=== PATIENT | male | born 1995 | race Caucasian/White ===

== ENCOUNTER 2021-09-19 17:58 | Emergency (ER) | payer SELFPAY ==
[2021-09-19] MEDS ORDERED: FLUORESCEIN SODIUM 1 MG/WRAP ONE (18:25)
[2021-09-19] MEDS ORDERED: TETRACAINE HCL 0.5% 4ML OPTH ONE (18:25)
[2021-09-19] MEDS ORDERED: TOBRAMYCIN SULF 0.3% OPTH OINT ONE (18:48)
[2021-09-19] MEDS ORDERED: CYCLOPENTOLATE 2% OPTH 2 ML ONE (18:51)
--- NOTE | 2021-09-19 18:54 | ER ---
Nurse's Notes [facility] Name: Gopal Alberts Age: 26 yrs Sex: Male : 1995 Arrival Date: 09/19/2021 Time: 18:01 Bed 12 Private MD: Diagnosis: Foreign body in cornea, left eye Presentation: 09/19 18:14 Chief complaint: Patient states: "I was working on a car yesterday and something fell ab2 in my eye. Last night it hurt but this morning when I woke up it was red and swollen, I think something is still in there.". Coronavirus screen: Vaccine status: Patient reports being unvaccinated. Client denies travel out of the [place] in the last 14 days. At this time, the client does not indicate any symptoms associated with coronavirus-19. Ebola Screen: Patient negative for fever greater than or equal to 101.5 degrees Fahrenheit, and additional compatible Ebola Virus Disease symptoms Patient denies exposure to infectious person. Patient denies travel to an Ebola-affected area in the 21 days before illness onset. No symptoms or risks identified at this time. Mechanism of Injury: unknown. The patient denies any loss of vision. Initial Sepsis Screen: Does the patient meet any 2 criteria? No. Patient's initial sepsis screen is negative. Does the patient have a suspected source of infection? No. Patient's initial sepsis screen is negative. Risk Assessment: Do you want to hurt yourself or someone else? Patient reports no desire to harm self or others. Onset of symptoms is unknown. 18:14 Method Of Arrival: Ambulatory ab2 18:14 Acuity: CLAUDIA 4 ab2 Triage Assessment: 18:18 General: Appears in no apparent distress. uncomfortable, Behavior is calm, cooperative, ab2 appropriate for age. Pain:. EENT: Reports pain. EENT: Reports Something in the left eye . Neuro: No deficits noted. Level of Consciousness is awake, alert, obeys commands, Oriented to person, place, time, situation, Appropriate for age Telecommunications Network Engineer are equal bilaterally Moves all extremities. Gait is steady, Speech is normal, Facial symmetry appears normal. Respiratory: Airway is patent Respiratory effort is even, unlabored, Respiratory pattern is regular, symmetrical. Historical: - Allergies: 18:17 No Known Allergies; ab2 - PMHx: 18:17 None; ab2 - PSHx: 18:17 None; ab2 - Immunization history:: Adult Immunizations up to date. - Social history:: Smoking status: Patient reports use of chewing tobacco. Screenin:18 Abuse screen: Denies threats or abuse. Denies injuries from another. Nutritional ab2 screening: No deficits noted. Tuberculosis screening: No symptoms or risk factors identified. Fall Risk None identified. Assessment: 18:30 General: Appears in no apparent distress. comfortable, Behavior is anxious. Neuro: ab2 Level of Consciousness is awake, alert, obeys commands, Oriented to person, place, time, situation, Appropriate for age. Vital Signs: 18:14 BP 135 / 94; Pulse 125; Resp 17; Temp 98.2(TE); Pulse Ox 100% on R/A; Weight 74.84 kg; ab2 Height 5 ft. 10 in. (177.80 cm); Pain 0/10; 18:50 BP 127 / 86; Pulse 95; Resp 17; Pulse Ox 100% on R/A; ab2 18:14 Body Mass Index 23.67 (74.84 kg, 177.80 cm) ab2 ED Course: 18:01 Patient arrived in ED. jj6 18:17 Triage completed. ab2 18:18 Arm band placed on right wrist. ab2 18:18 No provider procedures requiring assistance completed. ab2 18:19 Patient has correct armband on for positive identification. Bed in low position. Call ab2 light in reach. Side rails up X2. 18:20 Lluvia Mcmahon FNP-C is [facility]. kb 18:20 Hung Melissa MD is Attending Physician. kb 18:53 Ghassan Crump MD is Referral Physician. kb 18:57 Patient did not have IV access during this emergency room visit. ab2 Administered Medications: 18:48 Drug: Tetracaine Drops 0.5 % 1 drops Route: Ophthalmic; Site: left eye; ab2 18:48 Drug: Tobramycin Ointment (0.3 %) 1 application Route: Ophthalmic; Site: left eye; ab2 18:53 Drug: Cyclogyl Drops (1 %) 1 drops Route: Ophthalmic; Site: left eye; kb Outcome: 18:54 Discharge ordered by . kb 18:55 Discharged to home ambulatory. ab2 18:55 Condition: good 18:55 Discharge instructions given to patient, Instructed on discharge instructions, follow up and referral plans. Demonstrated understanding of instructions, follow-up care. 18:57 Patient left the ED. ab2 Signatures: Lluvia Mcmahon, HOMELAND SECURITY PROGRAM SPECIALIST-C HOMELAND SECURITY PROGRAM SPECIALIST-CkShandra Tyson jj6 Carmelo Em ab2
--- NOTE | 2021-09-19 18:55 | EDPHYS ---
Physician Documentation [facility] Name: Gopal Alberts Age: 26 yrs Sex: Male : 1995 Arrival Date: 09/19/2021 Time: 18:01 Bed 12 Private MD: ED Physician Hung Melissa HPI: 09/19 18:57 This 26 yrs old Male presents to ER via Ambulatory with complaints of Eye Pain, Redness kb of Eye, Drainage From Eye. 18:57 The patient is experiencing foreign body sensation, pain, redness, to the left eye, kb caused by debris. Onset: The symptoms/episode began/occurred yesterday. Duration: the symptoms are continuous. Aggravated by nothing. Alleviated by nothing. Associated signs and symptoms: Pertinent positives: None. Patient does not utilize any form of vision correction. Severity of symptoms: At their worst the symptoms were mild moderate in the emergency department the symptoms are unchanged. The patient has not experienced similar symptoms in the past. The patient has not recently seen a physician. Pt reports he was working under a car yesterday and believes something went into his left eye. Reports left eye pain and redness that started yesterday evening and is worse today. . Historical: - Allergies: 18:17 No Known Allergies; ab2 - PMHx: 18:17 None; ab2 - PSHx: 18:17 None; ab2 - Immunization history:: Adult Immunizations up to date. - Social history:: Smoking status: Patient reports use of chewing tobacco. ROS: 18:55 Constitutional: Negative for fever, chills, and weight loss. kb 18:55 Eyes: Positive for foreign body sensation, pain, redness. 18:55 All other systems are negative. Exam: 18:55 Constitutional: This is a well developed, well nourished patient who is awake, alert, kb and in no acute distress. Head/Face: Normocephalic, atraumatic. ENT: Moist Mucous membranes Respiratory: Respirations even and unlabored. No increased work of breathing. Talking in full sentences Skin: Warm, dry with normal turgor. Normal color. MS/ Extremity: Pulses equal, no cyanosis. Neurovascular intact. Full, normal range of motion. Neuro: Awake and alert, GCS 15, oriented to person, place, time, and situation. Moves all extremities. Normal gait. 18:55 Eyes: Periorbital structures: appear normal, Pupils: equal, round, and reactive to light and accomodation, Extraocular movements: intact throughout, Conjunctiva: injected, Corneas: foreign body, on the left, at 9 o'clock, a piece of metal, a fluorescein strip employed to appreciate the findings. Vital Signs: 18:14 BP 135 / 94; Pulse 125; Resp 17; Temp 98.2(TE); Pulse Ox 100% on R/A; Weight 74.84 kg; ab2 Height 5 ft. 10 in. (177.80 cm); Pain 0/10; 18:50 BP 127 / 86; Pulse 95; Resp 17; Pulse Ox 100% on R/A; ab2 18:14 Body Mass Index 23.67 (74.84 kg, 177.80 cm) ab2 Procedures: 18:56 Foreign Body Removal: a piece of metal, from the left eye, conjunctiva by Dressing: eye kb pad was placed, The patient tolerated the removal well, performed by Dr Melissa. MDM: 18:20 Patient medically screened. kb 18:55 Data reviewed: vital signs, nurses notes. Data interpreted: Pulse oximetry: on room air kb is 100 %. Interpretation: normal. Counseling: I had a detailed discussion with the patient and/or guardian regarding: the historical points, exam findings, and any diagnostic results supporting the discharge/admit diagnosis, the need for outpatient follow up, an opthalmologist, to return to the emergency department if symptoms worsen or persist or if there are any questions or concerns that arise at home. 09/19 18:20 Order name: Eye Tray; Complete Time: 18:30 kb 09/19 18:20 Order name: Fluoresene Opth strip; Complete Time: 18:30 kb 09/19 18:20 Order name: Visual Acuity 09/19 18:45 Order name: Misc. Order: patch left eye; Complete Time: 18:55 garrick Administered Medications: 18:48 Drug: Tetracaine Drops 0.5 % 1 drops Route: Ophthalmic; Site: left eye; ab2 18:48 Drug: Tobramycin Ointment (0.3 %) 1 application Route: Ophthalmic; Site: left eye; ab2 18:53 Drug: Cyclogyl Drops (1 %) 1 drops Route: Ophthalmic; Site: left eye; kb Disposition Summary: 09/19/21 18:54 Discharge Ordered Location: Home kb Condition: Stable kb Diagnosis - Foreign body in cornea, left eye kb Followup: kb - With: Emergency Department - When: As needed - Reason: Worsening of condition Followup: kb - With: Private Physician - When: 2 - 3 days - Reason: Recheck today's complaints, Continuance of care, Re-evaluation by your physician Followup: kb - With: Ghassan Crump MD - When: 09/21/2021 - Reason: Discharge Instructions: - Discharge Summary Sheet kb - Eye Foreign Body kb Forms: - Medication Reconciliation Form kb - Thank You Letter kb - Antibiotic Education kb - Prescription Opioid Use kb Addendum: 09/24/2021 18:31 Co-signature as Attending Physician, Hung Melissa MD I agree with the assessment and c patel plan of care. Signatures: Lluvia Mcmahon, VACUUM CLEANER MECHANIC-C VACUUM CLEANER MECHANIC-Hung Kate MD MD cha Bleininger, Alexis ab2
[2021-09-19 20:14] VITALS: BP 135/94; TEMP 98.2; O2SAT 100
== END 2021-09-19 18:57 | disposition home or self-care (01) ==
LOC: ER 17:58
PROC: 08C9XZZ Extirpation of Matter from Left Cornea, External Approach (ICD-10-PCS; principal; 2021-09-19)
DX: T15.02XA Foreign body in cornea, left eye, initial encounter (principal); X58.XXXA Exposure to other specified factors, initial encounter; Y93.89 Activity, other specified; Y92.9 Unspecified place or not applicable
CPT/HCPCS: 99283

== ENCOUNTER → 2023-08-10 | Emergency (ER) | payer SELFPAY ==
[~2023-08-10] MED LIST: MECLIZINE HCL 12.5 MG TAB ONE; ONDANSETRON 4 MG (ODT) TAB ONE
--- OUTSIDE RECORDS SUMMARY | 2023-08-10 09:23 | XMS REPORT | Continuity of Care Document ---
Author Name Unknown Address [address] [place] [address] [facility]connect Address [address] [place] [address] Care Team Providers Care Counter Intelligence Agent Name Role Phone Pcp, Patient Does Not Have A Primary Care Physic hay CONCHA JIMENEZ Attending Clinician UnavailConcha Becerra DO Attending Clinician [phone] MAGGY CARRASCO Attending Clinician Unavailab Maggy Dodge DO Attending Clinician [phone] Problems Condition Name Condition Details Condition Category Status Onset Date Resolution Date Last Treatment Date Treating Clinician Comments Source No known active problems No known active problems Disease [facility] Allergies, Adverse Reactions, Alerts Allergy Name Allergy Type Status Severity Reaction(s) Onset Date Inactive Date Treating Clinician Comments Source NO KNOWN ALLERGIE S Drug Class Active [facility] Social History Social Habit Start Date Stop Date Quantity Comments Source Sexual orientation [facility] Exposure to SARS-CoV-2 (event) 2022-03-06 00:00:00 2022-03-16 10:28:00 Not sure [facility] Sex Assigned At 1995 00:00:00 1995 00:00:00 [facility] Smoking Status Start Date Stop Date Source Tobacco smoking consumption unknown [facility] Medications Ordered Medication Name Filled Medication Name Start Date Stop Date Current Medication? Ordering Clinician Indication Dosage Frequency Signature (SIG) Comments Components Source dexAMETHaso ne (DECADRON) tablet 16 mg 2022-06 16:45: 00 05-19 16:01 :00 No 16mg 16 mg, Oral, ONCE, 1 dose, On Tue05/19/23 at 1045, TALIA [facility] dexamethaso ne sod phos PF injection 10 mg 2021-06 0-04 15:45: 00 03-16 15:53 :00 No 10mg 10 mg, Oral, ONCE, 1 dose, On Tue03/16/22 at 1045, 1 mL [facility] No known medications 2021-06 004 10:31: 29 No No known medication s [facility] Vital Signs Vital Name Observation Time Observation Value Comments Iesha schaefer Systolic blood pressure 2023-05-19 15:26:00 145 mm[Hg] [facility] Diastolic blood pressure 2023-05-19 15:26:00 102 mm[Hg] [facility] Heart rate 2023-05-19 15:26:00 110 /min [facility] Body temperature 2023-05-19 15:26:00 37.11 Genevieve [facility] Respiratory rate 2023-05-19 15:26:00 18 /min [facility] Body height 2023-05-19 15:26:00 177.8 cm [facility] Body weight 2023-05-19 15:26:00 70.308 kg [facility] BMI 2023-05-19 15:26:00 22.24 kg/m2 [facility] Oxygen saturation in Arterial blood by Pulse oximetry 2023-05-19 15:26:00 97 /min [facility] Systolic blood pressure 2022-03-16 15:29:00 164 mm[Hg] [facility] Diastolic blood pressure 2022-03-16 15:29:00 94 mm[Hg] [facility] Heart rate 2022-03-16 15:29:00 111 /min [facility] acute hospital Body temperature 2022-03-16 15:29:00 36.28 Genevieve [facility] Respiratory rate 2022-03-16 15:29:00 20 /min [facility] Body height 2022-03-16 15:29:00 177.8 cm [facility] Body weight 2022-03-16 15:29:00 70.308 kg [facility] BMI 2022-03-16 15:29:00 22.24 kg/m2 [facility] Oxygen saturation in Arterial blood by Pulse oximetry 2022-03-16 15:29:00 99 /min [facility] Procedures Procedure Date / Time Performed Performing Clinicia n Source ASSIGNMENT OF BENEFITS 2023-05-19 15:41:19 Docto r Unassigned, [place] [facility] CONSENT/REFUSAL FOR DIAGNOSIS AND TREATMENT 2023-05-19 15:15:09 Doctor Unassigned, [place] [facility] NOTICE OF PRIVACY PRACTICES 2022-03-16 15:10:26 Doctor Unassigned, [place] [facility] Encounters Start Date/Time End Date/Time Encounter Type Admission Type Attending [facility] Care Facility Care Department Encounter ID Source 2023-05-19 09:28:00 2023-05-19 10:04:00 Emergency X CONCHA JIMENEZ [facility] [id number] [facility] 2023-05-19 09:28:00 2023-05-19 10:04:00 Emergency Concha Jimenez [facility] [id number] [facility] 2022-03-16 10:27:00 2022-03-16 10:56:00 Emergency X MAGGY CARRASCO [facility] [id number] [facility] 2022-03-16 10:27:00 2022-03-16 10:56:00 Emergency Maggy Carrasco [facility] [id number] [facility]
--- NOTE | 2023-08-10 10:27 | RAD REPORT ---
EXAM DESCRIPTION: CT - Head Brain Wo Cont - 08/10/2023 10:20 am CLINICAL HISTORY: DIZZINESS COMPARISON: No comparisons TECHNIQUE: All CT scans are performed using dose optimization technique as appropriate and may inclu de automated exposure control or mA/KV adjustment according to patient size. FINDINGS: No intracranial hemorrhage, hydrocephalus or extra-axial fluid collection.No areas of brai n edema or evidence of midline shift. The paranasal sinuses and mastoids are clear. The calvarium is intact. IMPRESSION: No acute intracranial abnormality.
--- NOTE | 2023-08-10 10:43 | ER ---
Nurse's Notes [facility] Name: Gopal Alberts Age: 28 yrs Sex: Male : 1995 Arrival Date: 08/10/2023 Time: 09:21 Bed 17 Private MD: Diagnosis: Other peripheral vertigo Presentation: 08/10 10:05 Chief complaint: Patient states: Dizziness off/on for years. Coronavirus screen: ll1 Vaccine status: Patient reports being unvaccinated. Client denies travel out of the [place] in the last 14 days. At this time, the client does not indicate any symptoms associated with coronavirus-19. Ebola Screen: Patient denies travel to an Ebola-affected area in the 21 days before illness onset. Initial Sepsis Screen: Does the patient meet any 2 criteria? No. Patient's initial sepsis screen is negative. Does the patient have a suspected source of infection? No. Patient's initial sepsis screen is negative. Risk Assessment: Do you want to hurt yourself or someone else? Patient reports no desire to harm self or others. Onset of symptoms was June 13, 2019. 10:05 Method Of Arrival: Ambulatory ll1 10:05 Acuity: CLAUDIA 3 ll1 Historical: - Allergies: 10:04 No Known Allergies; ll1 - PMHx: 10:04 None; ll1 - PSHx: 10:04 hernia repair; ll1 - Immunization history:: Adult Immunizations up to date. - Social history:: Smoking status: Patient reports use of chewing tobacco. Patient/guardian denies using tobacco, Stopped _ months ago .25. Screenin:43 [facility] ED Fall Risk Assessment (Adult) History of falling in the last 3 months, tl4 including since admission No falls in past 3 months (0 pts) Confusion or Disorientation No (0 pts) Intoxicated or Sedated No (0 pts) Impaired Gait No (0 pts) Mobility Assist Device Used No (0 pt) Altered Elimination No (0 pt) Score/Fall Risk Level 0 - 2 = Low Risk Oriented to surroundings, Maintained a safe environment, Educated pt \T\ family on fall prevention, incl call for assistance when getting out of bed, Assessed \T\ reinforced patient's understanding of fall precautions, Provided non-skid footwear, Hourly rounding (assess needs \T\ fall precautionary measures) done, Used ambulatory aids as needed (educated on \T\ assisted with), Used gait belt as appropriate. Abuse screen: Denies threats or abuse. Denies injuries from another. Nutritional screening: No deficits noted. Tuberculosis screening: No symptoms or risk factors identified. Assessment: 10:14 General: Appears in no apparent distress. Behavior is calm, cooperative. Pain: Denies tl4 pain. Neuro: Reports dizziness, Denies weakness blurred vision difficulty swallowing, numbness. Cardiovascular: No deficits noted. Denies chest pain, diaphoresis, fatigue, lightheadedness, nausea, palpitations, syncope. Respiratory: No deficits noted. Denies cough, shortness of breath. GI: No deficits noted. No signs and/or symptoms were reported involving the gastrointestinal system. : No deficits noted. No signs and/or symptoms were reported regarding the genitourinary system. EENT: No deficits noted. No signs and/or symptoms were reported regarding the EENT system. Derm: No deficits noted. No signs and/or symptoms reported regarding the dermatologic system. Musculoskeletal: No deficits noted. No signs and/or symptoms reported regarding the musculoskeletal system. 10:52 Reassessment: No changes from previously documented assessment. Patient and/or family ll1 updated on plan of care and expected duration. Pain level reassessed. Patient is alert, oriented x 3, equal unlabored respirations, skin warm/dry/pink. Vital Signs: 10:05 BP 144 / 89; Pulse 100; Resp 18; Temp 97.9; Pulse Ox 100% ; Weight 70.31 kg; Height 5 ll1 ft. 10 in. ; Pain 0/10; 10:15 BP 145 / 100; Pulse 105; Resp 18; Pulse Ox 100% on R/A; tl4 10:43 BP 145 / 100; Pulse 83; Resp 17; Pulse Ox 100% on R/A; ll1 10:05 Body Mass Index 22.24 (70.31 kg, 177.8 cm) ll1 10:05 Pain Scale: Adult ll1 ED Course: 09:24 Patient arrived in ED. rg4 09:26 Hardeep Wolfe MD is Attending Physician. sp3 10:04 Arm band placed on Patient placed in an exam room, on a stretcher. ll1 10:06 Triage completed. ll1 10:09 Ayden Elizabeth, RN is Primary Nurse. tl4 10:22 CT Head Brain wo Cont In Process Unspecified. EDMS 10:42 Milagro Stevens MD is Referral Physician. sp3 10:43 Patient has correct armband on for positive identification. Placed in gown. Bed in low tl4 position. Call light in reach. Side rails up X2. Provided Education on: ed process. Client placed on continuous cardiac and pulse oximetry monitoring. NIBP monitoring applied. Door closed. Noise minimized. Lights dimmed. Moved to private room. Warm blanket given. 10:44 No provider procedures requiring assistance completed. tl4 10:53 Patient did not have IV access during this emergency room visit. ll1 Administered Medications: 10:36 Drug: Meclizine PO 25 mg PO once Route: PO; tl4 10:40 Follow up: Response: No adverse reaction ll1 10:36 Drug: Ondansetron Oral Disintegrating Tablet Oral Disintegrating Tablet 4 mg PO once tl4 Route: PO; 10:41 Follow up: Response: No adverse reaction ll1 Medication: 10:43 VIS not applicable for this client. tl4 Outcome: 10:42 Discharge ordered by . sp3 10:53 Patient left the ED. ll1 10:53 Discharged to home ambulatory, ll1 10:53 Condition: stable 10:53 Discharge instructions given to patient, Instructed on discharge instructions, follow up and referral plans. medication usage, Demonstrated understanding of instructions, follow-up care, medications, Prescriptions given X 1, Signatures: Dispatcher [employer] Analisa Garibay rg4 Kizzy Caldwell RN RN ll1 Hardeep Wolfe MD MD sp3 Ayden Elizabeth RN RN tl4
--- NOTE | 2023-08-10 10:43 | EDPHYS ---
Physician Documentation [facility] Name: Gopal Alberts Age: 28 yrs Sex: Male : 1995 Arrival Date: 08/10/2023 Time: 09:21 Bed 17 Private MD: ED Physician Hardeep Wolfe HPI: 08/10 10:11 This 28 yrs old Male presents to ER via Ambulatory with complaints of Dizziness. sp3 10:11 28-year-old male with no past medical history presents with vertigo symptoms along with sp3 "allergies" and upper respiratory symptoms. Patient states he has been dealing with this for several years and it comes and goes. He has not had any imaging in the past. He denies syncope or near syncope or any prodromal medical event. On review of systems he denies headache, neck pain, fever, neck stiffness, chest pain, shortness of breath, abdominal pain, vomiting or diarrhea, rash, trauma, known sick contacts, travel history, or any other signs or symptoms at this time. Vertigo is worse with movement and is sudden onset when it does come. No family history of brain mass or tumor.. Historical: - Allergies: 10:04 No Known Allergies; ll1 - PMHx: 10:04 None; ll1 - PSHx: 10:04 hernia repair; ll1 - Immunization history:: Adult Immunizations up to date. - Social history:: Smoking status: Patient reports use of chewing tobacco. Patient/guardian denies using tobacco, Stopped _ months ago .25. ROS: 10:12 Constitutional: Negative for fever, chills, and weight loss, Eyes: Negative for injury, sp3 pain, redness, and discharge, Neck: Negative for injury, pain, and swelling, Cardiovascular: Negative for chest pain, palpitations, and edema, Respiratory: Negative for shortness of breath, cough, wheezing, and pleuritic chest pain, Abdomen/GI: Negative for abdominal pain, nausea, vomiting, diarrhea, and constipation, Back: Negative for injury and pain, MS/Extremity: Negative for injury and deformity, Skin: Negative for injury, rash, and discoloration, Psych: Negative for depression, anxiety, suicide ideation, homicidal ideation, and hallucinations, Allergy/Immunology: Negative for hives, rash, and allergies, Endocrine: Negative for neck swelling, polydipsia, polyuria, polyphagia, and marked weight changes, Hematologic/Lymphatic: Negative for swollen nodes, abnormal bleeding, and unusual bruising, Exam: 10:12 Constitutional: This is a well developed, well nourished patient who is awake, alert, sp3 and in no acute distress. Head/Face: Normocephalic, atraumatic. Eyes: Pupils equal round and reactive to light, extra-ocular motions intact. Lids and lashes normal. Conjunctiva and sclera are non-icteric and not injected. Cornea within normal limits. Periorbital areas with no swelling, redness, or edema. ENT: Nares patent. No nasal discharge, no septal abnormalities noted. External auditory canals are clear. Oropharynx with no redness, swelling, or masses, exudates, or evidence of obstruction, uvula midline. Mucous membranes moist. Neck: Trachea midline, no thyromegaly or masses palpated, and no cervical lymphadenopathy. Supple, full range of motion without nuchal rigidity, or vertebral point tenderness. No Meningismus. Chest/axilla: Normal chest wall appearance and motion. Nontender with no deformity. No lesions are appreciated. Cardiovascular: Regular rate and rhythm with a normal S1 and S2. No gallops, murmurs, or rubs. Normal PMI, no JVD. No pulse deficits. Respiratory: Lungs have equal breath sounds bilaterally, clear to auscultation and percussion. No rales, rhonchi or wheezes noted. No increased work of breathing, no retractions or nasal flaring. Abdomen/GI: Soft, non-tender, with normal bowel sounds. No distension or tympany. No guarding or rebound. No evidence of tenderness throughout. Back: No spinal tenderness. No costovertebral tenderness. Full range of motion. Skin: Warm, dry with normal turgor. Normal color with no rashes, no lesions, and no evidence of cellulitis. MS/ Extremity: Pulses equal, no cyanosis. Neurovascular intact. Full, normal range of motion. Neuro: Awake and alert, GCS 15, oriented to person, place, time, and situation. Cranial nerves II-XII grossly intact. Motor strength 5/5 in all extremities. Sensory grossly intact. Cerebellar exam normal. Normal gait. Psych: Awake, alert, with orientation to person, place and time. Behavior, mood, and affect are within normal limits. Vital Signs: 10:05 BP 144 / 89; Pulse 100; Resp 18; Temp 97.9; Pulse Ox 100% ; Weight 70.31 kg; Height 5 ll1 ft. 10 in. ; Pain 0/10; 10:15 BP 145 / 100; Pulse 105; Resp 18; Pulse Ox 100% on R/A; tl4 10:43 BP 145 / 100; Pulse 83; Resp 17; Pulse Ox 100% on R/A; ll1 10:05 Body Mass Index 22.24 (70.31 kg, 177.8 cm) ll1 10:05 Pain Scale: Adult ll1 MDM: 09:30 Patient medically screened. sp3 10:13 Data reviewed: vital signs, nurses notes, radiologic studies. ED course: 28-year-old sp3 male with probable peripheral vertigo. Patient has no central vertigo signs or symptoms. Vertigo is not reproducible in the ED today. Will obtain CT scan of the head and administer meclizine and ondansetron p.o. If scan is negative we will safely discharge him home with meclizine prescription and follow-up with ENT and a new PCP which she is establishing. I am not highly suspicious for intracranial pathology, sepsis, shock, or any other critical process.. 10:41 ED course: CT scan is negative. Patient mildly improved on meds. We will safely sp3 discharged home on meclizine and follow-up to ENT.. 08/10 10:01 Order name: CT Head Brain wo Cont; Complete Time: 10:31 sp3 Administered Medications: 10:36 Drug: Meclizine PO 25 mg PO once Route: PO; tl4 10:40 Follow up: Response: No adverse reaction ll1 10:36 Drug: Ondansetron Oral Disintegrating Tablet Oral Disintegrating Tablet 4 mg PO once tl4 Route: PO; 10:41 Follow up: Response: No adverse reaction ll1 Disposition Summary: 08/10/23 10:42 Discharge Ordered Notes: Location: Home sp3 Condition: Stable sp3 Diagnosis - Other peripheral vertigo sp3 Followup: sp3 - With: Private Physician - When: Upon discharge from the Emergency Department - Reason: Further diagnostic work-up Followup: sp3 - With: Milagro Stevens MD - When: Upon discharge from the Emergency Department - Reason: Further diagnostic work-up Discharge Instructions: - Discharge Summary Sheet sp3 - Vertigo sp3 Forms: - Work release form ll1 - Medication Reconciliation Form sp3 - Thank You Letter sp3 - Antibiotic Education sp3 - Prescription Opioid Use sp3 - Patient Portal Instructions sp3 - Leadership Thank You Letter sp3 Prescriptions: - Meclizine 25 mg Oral Tablet - take 1 tablet ORAL route every 8 hours As needed; 30 tablet; Refills: 0, sp3 Product Selection Permitted Signatures: Dispatcher [employer] Kizzy Toth RN RN ll1 Hardeep Wolfe MD MD sp3 Ayden Elizabeth RN RN tl4
[2023-08-10 11:23] VITALS: BP 145/100; TEMP 97.9; O2SAT 100
== END ==
LOC: ER 09:21
DX: H81.399 Other peripheral vertigo, unspecified ear (principal)
CPT/HCPCS: 70450; J8597; Q0162